=== PATIENT | female | born 1995 | race Caucasian/White ===

== ENCOUNTER 2017-02-22 14:58 | Emergency (ER) | payer BC ==
[2017-02-22 15:30] VITALS: BP 116/71
--- NOTE | 2017-02-22 16:40 | UC ---
Respiratory Complaint HPI - HPI Summary HPI Summary: 21 yo female has had a cough x weeks productive no URI symptoms now with low grade fever and chest tightness CP with cough mild myalgias - History of Current Complaint Chief Complaint: UCRespiratory Stated Complaint: COUGH HEAVY CHEST CONGESTION Time Seen by Provider: 02/22/17 16:30 Hx Obtained From: Patient Hx Last Menstrual Period: 02/08/17 Onset/Duration: Gradual Onset, Lasting Weeks Timing: Constant Severity Initially: Mild Severity Currently: Moderate Pain Intensity: 3 Pain Scale Used: 0-10 Numeric Character: Cough: Productive Aggravating Factors: Exertion Associated Signs And Symptoms: Positive: Fever, Wheezing - today - Allergies/Home Medications Allergies/Adverse Reactions: Allergies Allergy/AdvReac Type Severity Reaction Status Date / Time No Known Allergies Allergy Verified 02/22/17 15:31 Home Medications: Home Medications Norgestimate-Ethinyl Estradiol [Sprintec 28 0.25-35 mg-Mcg] 1 tab PO DAILY 02/22 [History Confirmed 02/22/17] PMH/Surg Hx/FS Hx/Imm Hx Previously Healthy: Yes - Surgical History Surgical History: Yes Surgery Procedure, Year, and Place: T&A. left arm surgery age 2 - Family History Known Family History: Positive: Diabetes, Respiratory Disease - brother with asthma - Social History Alcohol Use: Weekly Substance Use Type: None Smoking Status (MU): Never Smoked Tobacco Review of Systems Constitutional: Fever Skin: Negative Eyes: Negative ENT: Negative Respiratory: Cough Cardiovascular: Negative Gastrointestinal: Negative Genitourinary: Negative Motor: Negative Neurovascular: Negative Musculoskeletal: Negative Neurological: Negative Psychological: Negative All Other Systems Reviewed And Are Negative: Yes Physical Exam Triage Information Reviewed: Yes Appearance: Well-Appearing, No Pain Distress, Well-Nourished Vital Signs: Initial Vital Signs Temp 100.5 F 02/22/17 15:27 Pulse 71 02/22/17 15:27 Resp 16 02/22/17 15:27 BP 116/71 02/22/17 15:27 Pulse Ox 100 02/22/17 15:27 Vital Signs Reviewed: Yes Eyes: Positive: Conjunctiva Clear ENT: Positive: Hearing grossly normal, Pharynx normal, TMs normal, Other: - no sinus tenderness. Negative: Nasal congestion, Nasal drainage, Tonsillar swelling, Tonsillar exudate, Trismus, Muffled/hoarse voice Dental: Negative: Abscess @ Neck: Positive: Supple, Nontender, No Lymphadenopathy Respiratory: Positive: Lungs clear, Normal breath sounds, No respiratory distress, No accessory muscle use Cardiovascular: Positive: RRR, No Murmur. Negative: Tachycardia, Bradycardia Musculoskeletal: Positive: ROM Intact, No Edema Neurological: Positive: Alert Psychological Exam: Normal Skin Exam: Normal UC Diagnostic Evaluation - Laboratory O2 Sat by Pulse Oximetry: 100 - normal/not hypoxic - Radiology Xray Interpretation: No Acute Changes Radiology Interpretation Completed By: Radiologist Respiratory Course/Dx - Differential Dx/Diagnosis Provider Diagnoses: acute bronchitis Discharge - Discharge Plan Condition: Stable Disposition: HOME Prescriptions: Amoxicillin PO (*) [Amoxicillin 875 MG (*)] 875 mg PO BID #14 tab Prednisone [Deltasone] 40 mg PO DAILY #10 tab Patient Education Materials: Acute Bronchitis (ED) Additional Instructions: rest fluids use inhaler as directed recheck in 4 days if not better
--- NOTE | 2017-02-22 16:56 | RAD ---
HISTORY: Cough COMPARISONS: None VIEWS: 4: Frontal dual-energy and lateral views of the chest. FINDINGS: CARDIOMEDIASTINAL SILHOUETTE: The cardiomediastinal silhouette is normal. HEIDI: The heidi are normal. PLEURA: The costophrenic angles are sharp. No pleural abnormalities are noted. LUNG PARENCHYMA: The lungs are clear. ABDOMEN: The upper abdomen is clear. There is no subphrenic gas. BONES AND SOFT TISSUES: No bone or soft tissue abnormalities are noted. OTHER: None. IMPRESSION: NO ACTIVE CARDIOPULMONARY DISEASE.
[2017-02-22] MEDS ORDERED: Albuterol HFA INHALER* 8 gm MDI INH ONE (17:13)
== END 2017-02-22 17:28 | disposition home or self-care (01) ==
LOC: UCCORT 14:58
DX: J20.9 Acute bronchitis, unspecified (principal)
CPT/HCPCS: 71020; 99203; A9270-GY; G0463

== ENCOUNTER 2017-04-10 12:17 | Emergency (ER) | payer BC ==
[2017-04-10 13:20] VITALS: BP 111/66
--- NOTE | 2017-04-10 13:41 | UC ---
Respiratory Complaint HPI - HPI Summary HPI Summary: 21 yo female with cough x 8+ wks no f/c no CP or SOB (-) CXR in January slight improvement since seen her earlier cough worse in AM worse while talking worse while cooking - History of Current Complaint Chief Complaint: UCRespiratory Stated Complaint: COUGH X 1 MONTH Time Seen by Provider: 04/10/17 13:26 Hx Obtained From: Patient Hx Last Menstrual Period: 04/05/17 Onset/Duration: Gradual Onset, Lasting Weeks Timing: Constant Severity Initially: Moderate Severity Currently: Moderate Pain Intensity: 1 Pain Scale Used: 0-10 Numeric Character: Cough: Nonproductive Aggravating Factors: Other - see HPI Associated Signs And Symptoms: Positive: Negative - Allergies/Home Medications Allergies/Adverse Reactions: Allergies Allergy/AdvReac Type Severity Reaction Status Date / Time No Known Allergies Allergy Verified 04/10/17 13:21 Home Medications: Home Medications Loratadine [Claritin 10 MG CAP] 10 mg PO DAILY 04/10/17 [History Confirmed 04/10] PMH/Surg Hx/FS Hx/Imm Hx Previously Healthy: Yes Respiratory History: Bronchitis - Surgical History Surgical History: Yes Surgery Procedure, Year, and Place: T&A. left arm surgery age 2 - Family History Known Family History: Positive: Diabetes, Respiratory Disease - brother with asthma, Other - lung CA Grandfather - Social History Alcohol Use: Weekly Substance Use Type: None Smoking Status (MU): Never Smoked Tobacco Review of Systems Constitutional: Negative Skin: Negative Eyes: Negative ENT: Negative Respiratory: Cough Cardiovascular: Negative Gastrointestinal: Negative Genitourinary: Negative Motor: Negative Neurovascular: Negative Musculoskeletal: Negative Neurological: Negative Psychological: Negative Is Patient Immunocompromised?: No All Other Systems Reviewed And Are Negative: Yes Physical Exam Triage Information Reviewed: Yes Appearance: Well-Appearing, No Pain Distress, Well-Nourished Vital Signs: Initial Vital Signs Temp 96.7 F 04/10/17 13:16 Pulse 72 04/10/17 13:16 Resp 16 04/10/17 13:16 BP 111/66 04/10/17 13:16 Pulse Ox 100 04/10/17 13:16 Vital Signs Reviewed: Yes Eyes: Positive: Conjunctiva Clear ENT: Positive: Hearing grossly normal, TMs normal. Negative: Nasal congestion, Trismus, Muffled/hoarse voice Neck: Positive: Supple, Nontender, No Lymphadenopathy Respiratory: Positive: Lungs clear, Normal breath sounds, No respiratory distress, No accessory muscle use Cardiovascular: Positive: RRR, No Murmur Musculoskeletal: Positive: ROM Intact, No Edema Neurological: Positive: Alert Psychological Exam: Normal Skin Exam: Normal UC Diagnostic Evaluation - Laboratory O2 Sat by Pulse Oximetry: 100 Re-Evaluation - Re-Evaluation First Eval Re-Evaluation Time: 14:49 Change: Improved - slight improvement Respiratory Course/Dx - Differential Dx/Diagnosis Provider Diagnoses: chronic cough. reactive airway disease Discharge - Discharge Plan Condition: Stable Disposition: HOME Prescriptions: Prednisone [Deltasone] 40 mg PO DAILY #10 tab Patient Education Materials: Bronchospasm (ED) Referrals: Hamzah Barrett MD [Medical Doctor] - Additional Instructions: I think you have an element of bronchospasm causing you chronic cough use your inhaler 2 puffs 4x day for 5-7 days I suggest you see an allergy and asthma specialist
[2017-04-10] MEDS: Albuterol 2.5 MG/3 ML NEB.SOL* (0.083%) INH ONE (14:06)
[2017-04-10] MEDS: Ipratropium 0.5MG/2.5ML NEB* 0.5 MG/2.5 ML NEB.SOLN INH ONE (14:06)
== END 2017-04-10 14:54 | disposition home or self-care (01) ==
LOC: UCCORT 12:17
DX: R05 Cough (principal); J45.909 Unspecified asthma, uncomplicated
CPT/HCPCS: 99212; G0463; J7644

== ENCOUNTER 2018-09-18 16:38 | Emergency (ER) | payer BC ==
[2018-09-18] MEDS ORDERED: Ondansetron ODT TAB* 4 MG PO ONE (17:29)
--- NOTE | 2018-09-18 17:30 | UC ---
UC General HPI - HPI Summary HPI Summary: nausea with vomiting since this am. has vomited about 6 times. no fever, abdominal pain or diarrhea. 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 + lightheaded and feels weak. - History of Current Complaint Chief Complaint: UCGeneralIllness Stated Complaint: VOMITING Time Seen by Provider: 09/18/18 17:23 Hx Obtained From: Patient Hx Last Menstrual Period: 09/14/18 Timing: Constant Pain Intensity: 0 Associated Signs & Symptoms: Positive: Nausea, Vomiting. Negative: Abdominal Pain, Diarrhea - Allergy/Home Medications Allergies/Adverse Reactions: Allergies Allergy/AdvReac Type Severity Reaction Status Date / Time No Known Allergies Allergy Verified 04/10/17 13:21 Home Medications: Home Medications Dm/Pseudoephed/Acetaminophen [Day-Time Cold-Flu Softgel] 1 each PO ONCE [History Confirmed 09/18/18] PMH/Surg Hx/FS Hx/Imm Hx Previously Healthy: Yes - Surgical History Surgical History: Yes Surgery Procedure, Year, and Place: T&A. left arm surgery age 2 - Family History Known Family History: Positive: Diabetes, Respiratory Disease - brother with asthma, Other - lung CA Grandfather - Social History Occupation: Employed Full-time Lives: With Family Alcohol Use: Weekly Substance Use Type: None Smoking Status (MU): Never Smoked Tobacco Review of Systems All Other Systems Reviewed And Are Negative: Yes Constitutional: Positive: Fatigue Gastrointestinal: Positive: Vomiting, Nausea. Negative: Abdominal Pain, Diarrhea Neurological: Positive: Weakness Physical Exam Triage Information Reviewed: Yes Appearance: Well-Appearing Vital Signs: Initial Vital Signs Temp 99.0 F 09/18/18 17:06 Pulse 85 09/18/18 17:06 Resp 21 09/18/18 17:06 BP 122/78 09/18/18 17:06 Pulse Ox 100 09/18/18 17:06 Eyes: Positive: Conjunctiva Clear ENT: Positive: Pharynx normal, TMs normal, Other - Lips dry.. Negative: Nasal congestion, Nasal drainage Neck: Positive: Supple, Nontender, No Lymphadenopathy Respiratory: Positive: Lungs clear, Normal breath sounds, No respiratory distress Cardiovascular: Positive: RRR, No Murmur Abdomen Description: Positive: Nontender, No Organomegaly, Soft. Negative: Distended, Guarding Bowel Sounds: Positive: Present Musculoskeletal: Positive: ROM Intact Neurological: Positive: Alert Psychological: Positive: Age Appropriate Behavior Skin Exam: Normal Re-Evaluation - Re-Evaluation First Eval Re-Evaluation Time: 18:08 Change: Improved - less nausea with the zofran. now trying sips of water. Second Eval Re-Evaluation Time: 19:19 Change: Improved - able to keep down 500ml water and small can of apple juice. taking in second can of apple juice. Third Eval Re-Evaluation Time: 19:40 Change: Improved - took more po fluids, total about 1L with no vomiting. urinated prior to discharge. Course/Dx - Course Course Of Treatment: U/A=TRACE PROTEIN, SG > 1.030, 4+ KETONES. HCG=NEGATIVE - Diagnoses Provider Diagnosis: Vomiting, Dehydration Discharge - Sign-Out/Discharge Documenting (check all that apply): Patient Departure All imaging exams completed and their final reports reviewed: No Studies - Discharge Plan Condition: Stable Disposition: HOME Prescriptions: Ondansetron ODT TAB* [Zofran 4 MG Odt TAB*] 4 mg PO Q6H PRN 3 Days #1 box PRN Reason: Nausea/Vomiting Patient Education Materials: Dehydration (ED), Acute Nausea and Vomiting (ED) Forms: *Work Release Referrals: Jenni Lebron NP [Nurse Practitioner] - 3 Days - Billing Disposition and Condition Condition: STABLE Disposition: Home - Attestation Statements Provider Attestation: Per institutional requirements, I have reviewed the chart, however, I was not consulted specifically or made aware of this patient by the midlevel provider. I did not personally evaluate, interact with , or disposition this patient.
[2018-09-18 19:27] VITALS: BP 107/69
== END 2018-09-18 19:57 | disposition home or self-care (01) ==
LOC: UCCORT 16:38
DX: R11.2 Nausea with vomiting, unspecified (principal); E86.0 Dehydration
CPT/HCPCS: 81003; 84702; 99212; A9270-GY; G0463